=== PATIENT | male | born 1985 | race Caucasian/White ===

== ENCOUNTER 2017-07-07 17:11 | Emergency (ER) | payer SELFPAY ==
[2017-07-07 17:20] VITALS: BMI 25.1
--- NOTE | 2017-07-07 21:21 | DR.GENAD ---
HPI - PCP Primary Care Physician: NFD - Complaint/Symptoms Chief Complaint Doctors Comments: I agree with statement. Chief Complaint:: TWO DAYS AGO STARTED HAVING NAUSEA VOMITING AND DIARRHEA WITH STOMACH CRAMPING. SYMPTOMS GOT WORSE TODAY AND HE HAS FELT VERY DIZZY Self Treatment fo Chief Complaint: VITAMIN C, THERAFLU AND ASPIRIN - Source History Provided: Patient - Mode of Arrival Mode of Arrival: Ambulatory - Timing Onset of Chief Complaint: 07/05/17 PMH - PMH Past Medical History: No Past Medical History: NC Past Surgical History: Yes Surgical History: Ortho Surgery Past Surgical History Comment: REPAIR OF LIVER LAC - Family History History of Family Medical Conditions: Yes Family Medical History: Diabetes Mellitus, [place], Hypertension - Social History Does patient currently use any type of tobacco product: Yes Have you used tobacco products in the last 12 months: Yes Type of Tobacco Use: Cigarettes How many years tobacco product used: 1 Alcohol Use: None Do you use any recreational Drugs:: Yes (MARIJUANA) Lives With: Alone Lives Where: Home - infectious screening In the last 2 months have you had wt loss of >10#?: NO Have you had fever, night sweats or hemotysis?: No Have you traveled outside the country in the last 6 months?: No Isolation: Standard ROS - Review of Systems Eyes: No Symptoms Reported ENTM: No Symptoms Reported Respiratoy: No Symptoms Reported Cardiovascular: No Symptoms Reported Gastrointestinal/Abdominal: Abdominal Pain Genitourinary: No Symptoms Reported Neurological: No Symptoms Reported Musculoskeletal: No Symptoms Reported Integumentary: No Symptoms Reported Hematologic/Lymphatic: No Symptoms Reported Endocrine: No Symptoms Reported Psychiatric: No Symptoms Reported All Other Systems: Reviewed and Negative PE - Vital Signs Vitals: Temperature 97.5 F Pulse Rate 90 Respiratory Rate 18 Blood Pressure 119/77 O2 Sat by Pulse Oximetry 99 - General Limitations: No Limitations General Appearance: Alert, In No Apparent Distress, Appears Intoxicated - Head Head Exam: Normal Inspection, Atraumatic - Eyes Eye exam: Normal Appearance, PERRL, EOMI - ENT ENT Exam: Normal Exam External Ear Exam: Normal External Inspection TM/Canal Exam: Bilateral Normal Nose Exam: Normal Nose Exam Mouth Exam: Normal Inspection Throat Exam: Normal Inspection - Neck Neck Exam: Normal Inspection, Full ROM - Chest Chest Inspection: Normal Inspection, Symmetric Chest Wall Rise - Respiratory Respiratory Exam: Normal Lung Sounds Bilat Respiratory Exam: Bilateral Clear to Auscultation - Cardiovascular Cardiovascular Exam: Regular Rate, Normal Rhythm - Abdominal Exam Abdominal Exam: Tenderness. negative: Guarding, Rigidity Abdominal Tenderness: Diffuse - Extremities Extremities Exam: Normal Inspection, Full ROM - Back Back Exam: Normal Inspection, Full ROM - Neurologic Neurological Exam: Alert, Oriented X3, CN II-XII Intact ROR - Labs Reviewed Result Diagrams: 07/07/17 21:30 07/07/17 21: Laboratory: WBC 4.9 X10^3/uL (3.6-10.0) 07/07/17: RBC 4.19 X10^6/uL (4.7-6.0) L 07/07/17: Hgb 12.9 g/dL (13.5-18.0) L 07/07/17: Hct 36.8 % (42.0-54.0) L 07/07/17: MCV 87.7 fL (80.0-100.0) 07/07/17: MCH 30.7 pg (27.0-34.0) 07/07/17: MCHC 35.0 g/dL (33.0-35.0) 07/07/17: RDW 13.4 % (11.6-16.5) 07/07/17: Plt Count 221 X10^3/uL (150.0-450.0) 07/07/17 21: MPV 8.2 fL (7.4-11.0) 07/07/17 21: Neut % 58.6 % (42.0-75.0) 07/07/17: Lymph % 27.0 % (21.0-51.0) 07/07/17 21: [place] % 12.6 % (0.0-13.0) 07/07/17: Eos % 1.3 % (0.9-2.9) 07/07/17: Baso % 0.5 % (0.2-1.0) 07/07/17 21: Neut # 2.9 x10^3/uL (2.2-4.8) 07/07/17: Lymph # 1.3 X10^3/uL (1.3-2.9) 07/07/17 21:30 [place] # 0.6 x10^3/uL (0.3-0.8) 07/07/17 21:30 Eos # 0.1 x10^3/uL (0.0-0.2) 07/07/17 21:30 Baso # 0.0 X10^3/uL (0.0-0.1) 07/07/17 21:30 Absolute Nucleated RBC 0.1 /100WBC 07/07/17 21:30 Sodium 135 mmol/L (136-145) L 07/07/17 21:30 Corrected Sodium TNP 07/07/17 21:30 Potassium 3.5 mmol/L (3.5-5.1) 07/07/17 21:30 Chloride 98 mmol/L (98-107) 07/07/17 21:30 Carbon Dioxide 31.8 mmol/L (21-32) 07/07/17 21:30 BUN 20 mg/dL (7-18) H 07/07/17 21:30 Creatinine 0.76 mg/dL (0.70-1.30) 07/07/17 21:30 Est GFR (MDRD) Af Amer > 60 (>60) 07/07/17 21:30 Est GFR (MDRD) Non-Af > 60 (>60) 07/07/17 21:30 Glucose 94 mg/dL (65-99) 07/07/17 21:30 Calcium 8.4 mg/dL (8.5-10.1) L 07/07/17 21:30 C-Reactive Protein 78.50 mg/L (0-3.0) H 07/07/17 21:30 Influenza Type A (PCR) Negative (NEGATIVE) 07/07/17 20:58 Influenza Type B (PCR) Negative (NEGATIVE) 07/07/17 20:58 - XRAY XRAY Interpreted by: Radiologist (CT Abd/Pelv with: There is mild diffuse gastric wall thickening and ucosal enhancement. Fluid is also present throughout the normal caliber distal small bowel. There is significant stool burden throughout the colo, compatible with constipation. No bowel obstruction is identified. The appendix is normal. The IVC, abdominal aorta and urinary bladder are normal. The prostate is normal in size. Shot[place] retroperitoneal lymph nodes are presrnt, none pathologically enlarged and likely reactive. No free air or free fluid is identified. Impression: Gastroenteritis.) - Diagnosis Discharge Problem: Gastroenteritis - Discharge Plan Condition: Stable - Follow ups/Referrals Follow ups/Referrals: NFD,None [Primary Care Provider] - 3 days - Instructions
[2017-07-07] MEDS ORDERED: BENTYL I.M. INJ 10 MG IM ONE ×2 (21:22→21:42)
[2017-07-07] MEDS ORDERED: ZOFRAN INJ 4 MG VIAL IVP ONE (21:22)
[2017-07-07 21:42] LABS: BASOPHILS % (AUTO) 0.5 % (0.2-1.0); EOSINOPHILS # (AUTO) 0.1 x10^3/uL (0.0-0.2); EOSINOPHILS % (AUTO) 1.3 % (0.9-2.9); HEMATOCRIT 36.8 % (42.0-54.0); HEMOGLOBIN 12.9 g/dL (13.5-18.0); LYMPHOCYTES # (AUTO) 1.3 X10^3/uL (1.3-2.9); MEAN CORPUSCULAR HEMOGLOBIN 30.7 pg (27.0-34.0); MEAN CORPUSCULAR VOLUME 87.7 fL (80.0-100.0); MEAN PLATELET VOLUME 8.2 fL (7.4-11.0); MONOCYTES # (AUTO) 0.6 x10^3/uL (0.3-0.8); MONOCYTES % (AUTO) 12.6 % (0.0-13.0); NEUTROPHILS # (AUTO) 2.9 x10^3/uL (2.2-4.8); NEUTROPHILS % (AUTO) 58.6 % (42.0-75.0); PLATELET COUNT 221 X10^3/uL (150.0-450.0); RED BLOOD COUNT 4.19 X10^6/uL (4.7-6.0); RED CELL DISTRIBUTION WIDTH 13.4 % (11.6-16.5); WHITE BLOOD COUNT 4.9 X10^3/uL (3.6-10.0)
[2017-07-07] MEDS ORDERED: ZOFRAN INJ 4 MG VIAL ONE (21:42)
[2017-07-07 21:51] LABS: BLOOD UREA NITROGEN 20 mg/dL (7-18); CALCIUM 8.4 mg/dL (8.5-10.1); CARBON DIOXIDE 31.8 mmol/L (21-32); CHLORIDE 98 mmol/L (98-107); CREATININE 0.76 mg/dL (0.70-1.30); SODIUM 135 mmol/L (136-145); eGFR BLACK RACES > 60 (>60); eGFR NON BLACK RACES > 60 (>60)
[2017-07-07] MEDS ORDERED: ZOFRAN INJ 4 MG VIAL IM ONE (21:51)
--- NOTE | 2017-07-07 23:36 | CT ---
CT abdomen and pelvis with contrast Indication: Abdominal pain, nausea, vomiting, diarrhea Technique: Helical CT images of the abdomen and pelvis were obtained with IV contrast. Reformatted im ages in the coronal and sagittal planes were also generated for review. Comparison: None Findings: Lung bases are clear. No aggressive osseous lesions are identified. The liver, gallbladder, spleen, pancreas, adrenals and kidneys are unremarkable. There is mild diffuse gastric wall thickening and mucosal enhancement. Fluid is also present througho ut the normal caliber distal small bowel. There is significant stool burden throughout the colon, com patible with constipation. No bowel obstruction is identified. The appendix is normal. The IVC, abdominal aorta and urinary bladder are normal. The prostate is normal in size. Shotty retro peritoneal lymph nodes are present, none pathologically enlarged and likely reactive. No free air or free fluid is identified. Impression: Imaging findings suggestive for gastroenteritis, as detailed above. Constipation. Reported By:
[2017-07-08 00:09] VITALS: BP 123/77
== END 2017-07-08 00:06 | disposition home or self-care (01) ==
LOC: ER 17:33
DX: R11.2 Nausea with vomiting, unspecified (principal); R19.7 Diarrhea, unspecified
CPT/HCPCS: 36415; 74177; 80048; 85025; 86140; 87502; 96365; 96372; 99283; A4222; J0500; J2405